=== PATIENT | male | born 1965 | race Two or more races ===

== ENCOUNTER → 2018-01-06 | Outpatient (CLI) | payer MEDICAID | END | disposition home or self-care (01) | LOC: Rad HDHVI 09:09 | PROVIDERS: ATTEND Internal Medicine | DX: R06.02 Shortness of breath (principal) | CPT/HCPCS: 93306; 93926 ==

== ENCOUNTER → 2018-01-22 | Outpatient (CLI) | payer MEDICAID ==
[~2018-01-22] MED LIST: ADENOSINE 90 MG/30 ML INJ IV ONE; ADENOSINE 95 MG in GIVE UN-DILUTED 0 ML IV ONE
== END | disposition home or self-care (01) ==
LOC: Rad HDHVI 14:09
PROVIDERS: ATTEND Internal Medicine
DX: I10 Essential (primary) hypertension (principal); E11.9 Type 2 diabetes mellitus without complications; I73.9 Peripheral vascular disease, unspecified; G89.4 Chronic pain syndrome; G47.33 Obstructive sleep apnea (adult) (pediatric)
CPT/HCPCS: 78452; 93005; 96374; 96375; A9500; J0153